=== PATIENT | male | born 1995 | race Two or more races ===

== ENCOUNTER 2019-11-04 11:38 | Inpatient (IN) | payer MEDICAID ==
[~2019-11-04] VITALS: Ht 157.5 cm; Wt 53.5 kg
[~2019-11-04 11:38] MED LIST: ACET325T53 PO; ALLA266C2 TP; BENA40TA8 PO; CALC667C6 PO; CLON0.1T14 PO; DARB25VI IV; DOCU-141 PO; HYDR-3974 GT; HYDR-4076 PO; IRON100V6 IV; PARI2VIA IV; SEVE800T8 PO; WARF2TAB57 PO
--- NOTE | 2019-11-04 12:30 | NUR ---
sent from dialysis for Lue dialysis access bleeding. PT AAOX4, VSS. RR EVEN & UNLABORED. DENIES CP, SOB, DIZZINESS, N/V, WEAKNESS @ THIS TIME. PT SEEN & EVAL'D BY THANH CONTRERAS. WILL CONT TO MONITOR.
[2019-11-04] MEDS ORDERED: CARV25TA2 PO (12:34)
[2019-11-04] MEDS ORDERED: SEVE800T7 PO (12:34)
[2019-11-04] MEDS ORDERED: OMEP20CA15 PO (12:34)
[2019-11-04] MEDS ORDERED: AMLO10TA7 PO (12:34)
[2019-11-04 12:44] LABS: BASOPHILS % (AUTO) 0.9 % (0.0-2.0); EOSINOPHILS % (AUTO) 12.3 % (0.0-6.0); HEMATOCRIT 30 % (39-51); HEMOGLOBIN 9.5 g/dL (13.5-17.5); LYMPHOCYTES # (AUTO) 0.8 /CMM (0.8-4.8); LYMPHOCYTES % (AUTO) 17.4 % (20.0-44.0); MEAN CORPUSCULAR HGB CONC 32 g/dl (31.0-36.0); MEAN CORPUSCULAR VOLUME 89 fL (80-96); MONOCYTES # (AUTO) 0.4 /CMM (0.1-1.30); MONOCYTES % (AUTO) 9.4 % (2.0-12.0); NEUTROPHILS # (AUTO) 2.7 /CMM (1.8-8.9); PLATELET COUNT (AUTO) 155 /CMM (150-450); RED BLOOD CELL COUNT(AUTO) 3.36 MIL/uL (4.5-6.0); WHITE BLOOD COUNT (AUTO) 4.4 K/uL (4.3-11.0)
[2019-11-04 12:59] LABS: POTASSIUM 5.1 mmol/L (3.5-5.1)
[2019-11-04 13:00] LABS: BILIRUBIN,DIRECT 0.1 mg/dL (0.0-0.2); BILIRUBIN,TOTAL 0.4 mg/dL (0.2-1.0); CALCIUM, SERUM 9.8 mg/dL (8.5-10.1)
[2019-11-04 13:02] LABS: CREATININE 15.7 mg/dL (0.6-1.3)
--- NOTE | 2019-11-04 13:18 | NUR ---
paged dr seo, call in progress
--- NOTE | 2019-11-04 13:21 | NUR ---
paged [facility] for panel call
--- NOTE | 2019-11-04 13:40 | NUR ---
REPORT GIVEN TO DESTINY MILLER FOR KIAN
--- NOTE | 2019-11-04 13:55 | NUR ---
RN ADMITTING NOTES ADMITTED A 24 Y/O MALE TO UNIT VIA WHEELCHAIR ACCOMPANIED BY HOSPITAL STAFF AND FAMILY. A/O X4. ABLE TO MAKE NEEDS KNOWN. NO COMPLAIN OF PAIN AT THIS TIME. NO SIGNS OF DISTRESS NOTED AT THIS TIME. ON ROOM AIR, BREATHING EVEN AND UNLABORED. V/S TAKEN, STABLE AND RECORDED. REFUSED PHYSICAL ASSESSMENT AT THIS TIME. LUNGS CLEAR ON AUSCULTATION. IV ACCESS ON RIGHT AC #20, PATENT AND INTACT. SAFETY MEASURES IN PLACE, BED IN LOW LOCKED POSITION WITH SIDE RAILS UP X2. CALL LIGHT WITHIN EASY REACH. WILL CONTINUE TO MONITOR.
[2019-11-04] MEDS ORDERED: MAG HYDROX/AL HYDROX/SIMETH 30 ML UDC PO PRN (15:30)
[2019-11-04] MEDS ORDERED: ZOLPIDEM TARTRATE 5 MG TABLET PO PRN (15:30)
[2019-11-04] MEDS ORDERED: ONDANSETRON HCL/PF 4 MG/2 ML VIAL IVP PRN (15:30)
[2019-11-04] MEDS ORDERED: Z GUARD REMEDY 2 OZ OINT TP PRN (15:30)
[2019-11-04] MEDS ORDERED: ACETAMINOPHEN 325 MG TABLET PO PRN (15:30)
[2019-11-04 16:00] VITALS: BP 140/82
[2019-11-04] MEDS: SEVELAMER CARBONATE 800 MG TABLET PO SCH (17:21)
--- NOTE | 2019-11-04 18:34 | NUR ---
RN CLOSING NOTES PATIENT IN BED RESTING COMFORTABLY IN MODERATE HIGH BACK REST. A/O X4. FAMILY AT BEDSIDE. ON RA, TOLERATING WELL. NO SIGNS OF DISTRESS NOTED THROUGHOUT THE SHIFT. SEEN AND EXAMINED BY KEO MARTINEZ NP. NO NEW ORDERS AT THIS TIME. SCHEDULED FOR HD TODAY AROUND 19:00, CONSENT SIGNED. SAFETY MEASURES IN PLACE, BED IN LOW LOCKED POSITION WITH SIDE RAILS UP X2. CALL LIGHT WITHIN REACH. WILL ENDORSE TO INTERACTIVE MEDIA MARKETING STRATEGIST NURSE FOR KIAN.
--- NOTE | 2019-11-04 19:50 | NUR ---
MS RN NOTES PATIENT IN BED AWAKE. RECEIVING HEMODIALYSIS ON LUE SHUNT. ALERT AND ORIENTED X 4. FAMILY AT BESIDE. IV ON RAC 20G. CLEAN DRY AND INTACT. BREATHING EVEN AND UNLABORED ON ROOM AIR. SAFETY PRECAUTION IN PLACE. BED IN LOWEST POSITION, LOCKED, AND CALL LIGHT KEPT WITHIN REACH. WILL CONTINUE TO MONITOR.
[2019-11-04 22:00] VITALS: BP 166/98
--- NOTE | 2019-11-04 22:30 | NUR ---
MS RN NOTES COMPLETED HEMODIALYSIS, 1500CC OUT. WILL CONTINUE TO MONITOR.
[2019-11-04] MEDS: CARVEDILOL 12.5 MG TABLET PO SCH (22:42)
--- NOTE | 2019-11-05 06:41 | NUR ---
MS RN NOTES PATIENT IN BED ASLEEP. RECEIVED HEMODIALYSIS ON LUE SHUNT. ALERT AND ORIENTED X 4. IV ON RAC 20G. CLEAN DRY AND INTACT. BREATHING EVEN AND UNLABORED ON ROOM AIR. ALL DUE MEDICATION GIVEN. SAFETY PRECAUTION IN PLACE. BED IN LOWEST POSITION, LOCKED, AND CALL LIGHT KEPT WITHIN REACH. WILL ENDORSE TO ONCOMING NURSE.
[2019-11-05 07:07] LABS: BASOPHILS % (AUTO) 0.7 % (0.0-2.0); EOSINOPHILS % (AUTO) 11.8 % (0.0-6.0); HEMATOCRIT 27 % (39-51); HEMOGLOBIN 8.6 g/dL (13.5-17.5); LYMPHOCYTES % (AUTO) 24.5 % (20.0-44.0); MEAN CORPUSCULAR HGB CONC 33 g/dl (31.0-36.0); MEAN CORPUSCULAR VOLUME 88 fL (80-96); MONOCYTES # (AUTO) 0.4 /CMM (0.1-1.30); NEUTROPHILS # (AUTO) 2.2 /CMM (1.8-8.9); PLATELET COUNT (AUTO) 135 /CMM (150-450); RED BLOOD CELL COUNT(AUTO) 3.02 MIL/uL (4.5-6.0); WHITE BLOOD COUNT (AUTO) 4.1 K/uL (4.3-11.0)
[2019-11-05] MEDS ORDERED: PANTOPRAZOLE 40 MG TABLET.DR PO SCH (07:30)
[2019-11-05 07:33] LABS: CALCIUM, SERUM 9.3 mg/dL (8.5-10.1); MAGNESIUM 2.5 mg/dL (1.8-2.4); PHOSPHORUS 5.5 mg/dL (2.5-4.9); POTASSIUM 4.8 mmol/L (3.5-5.1)
[2019-11-05 07:35] LABS: CREATININE 11.2 mg/dL (0.6-1.3)
[2019-11-05 08:00] VITALS: BP 167/100
[2019-11-05] MEDS ORDERED: AMLODIPINE BESYLATE 10 MG TABLET PO SCH (09:00)
[2019-11-05] MEDS: SEVELAMER CARBONATE 800 MG TABLET PO SCH ×2 (09:38→13:56)
[2019-11-05] MEDS: CARVEDILOL 12.5 MG TABLET PO SCH (09:41)
--- NOTE | 2019-11-05 10:44 | NUR ---
received alert and oriented .ambulating , with no signs of bleeding to the left upper arm av shunt
--- NOTE | 2019-11-05 11:19 | NUR ---
Dr Reyna in and infor,med bout the elevated phosphorous level
--- NOTE | 2019-11-05 14:02 | NUR ---
waiting for the physician to come to check on him,vascular physician order not ordered, charge nurse is calling the cosmetics and toiletries salesperson for the orders,
--- NOTE | 2019-11-05 15:43 | NUR ---
MICHELLE MARTINEZ WITH ORDERS FOR DISCHARGE, REPORT GIVEN TO ANOTHER RN FOR CONTINUED CARE, DR BUSH SEEN PATIENT AND FROM RENAL STANDPOINT PATIENT IS DISCHARGE. LEFT UPPER ARM AV SHUNT ISDRESSING INTACT AND NO SIGNS OF BLEEDING
[2019-11-05 16:00] VITALS: BP 135/84
--- NOTE | 2019-11-05 17:30 | NUR ---
discharged patient in stable condition picked up by mother accompanied by DESTINY Macdonald to the lobby. discharged instructions to f/u with dialysis center and surgeon as scheduled, verbalized understanding. dc paperwork given. all belongings returned. iv access removed. name band removed. photo taken.
== END 2019-11-05 17:30 | disposition home or self-care (01) | DRG 206 ==
LOC: ER 11:39 → MED 12:49
PROVIDERS: ADMIT Nurse Practitioner Acute Care; ATTEND Nurse Practitioner Acute Care
PROC: 5A1D70Z Performance of Urinary Filtration, Intermittent, Less than 6 Hours Per Day (ICD-10-PCS; principal; 2019-11-04)
DX: T82.838A Hemorrhage due to vascular prosthetic devices, implants and grafts, initial encounter (principal); I12.0 Hypertensive chronic kidney disease with stage 5 chronic kidney disease or end stage renal disease; E44.1 Mild protein-calorie malnutrition; N18.6 End stage renal disease; D63.8 Anemia in other chronic diseases classified elsewhere; Z99.2 Dependence on renal dialysis; Z86.711 Personal history of pulmonary embolism; E88.09 Other disorders of plasma-protein metabolism, not elsewhere classified; Z68.21 Body mass index [BMI] 21.0-21.9, adult; Y83.8 Other surgical procedures as the cause of abnormal reaction of the patient, or of later complication, without mention of misadventure at the time of the procedure; Y92.009 Unspecified place in unspecified non-institutional (private) residence as the place of occurrence of the external cause
CPT/HCPCS: 36415; 71045-TC; 80048-TC; 80061-TC; 80076-TC; 83735-TC; 84100-TC; 85025-TC; 85730-TC; 87081-TC; 90935-TC; 93971-TC; G0378

== ENCOUNTER 2022-09-10 10:57 | Inpatient (IN) | payer MEDICAID ==
[~2022-09-10] VITALS: Ht 154.9 cm; Wt 61.7 kg
[~2022-09-10 10:57] MED LIST changes: -ACET325T53 PO; -ALLA266C2 TP; +AMLO-213 PO; -CALC667C6 PO; +CARV25TA2 PO; -CLON0.1T14 PO; -DARB25VI IV; -DOCU-141 PO; -HYDR-4076 PO; -IRON100V6 IV; +OMEP20CA15 PO; -PARI2VIA IV; +SEVE800T7 PO; -SEVE800T8 PO; -WARF2TAB57 PO
--- NOTE | 2022-09-10 11:30 | NUR ---
dr muniz at bedside for eval.
[2022-09-10] MEDS ORDERED: METO25TA20 PO (11:41)
[2022-09-10] MEDS ORDERED: NIFE-34 PO (11:41)
[2022-09-10] MEDS ORDERED: CLON0.1T PO (11:41)
--- NOTE | 2022-09-10 12:40 | NUR ---
covid swab test done. sent to lab
--- NOTE | 2022-09-10 12:42 | NUR ---
GOT BED 325-1
--- NOTE | 2022-09-10 13:05 | NUR ---
IV line established at right forearm
--- NOTE | 2022-09-10 13:07 | NUR ---
blood sample collected send to lab.
--- NOTE | 2022-09-10 13:34 | NUR ---
[facility] paged. awaiting hospitalist call back.
[2022-09-10 13:38] LABS: BASOPHILS % (AUTO) 0.5 % (0.0-2.0); EOSINOPHILS % (AUTO) 8.1 % (0.0-6.0); HEMATOCRIT 23 % (39-51); HEMOGLOBIN 7.6 g/dL (13.5-17.5); LYMPHOCYTES # (AUTO) 0.9 K/uL (0.8-4.8); LYMPHOCYTES % (AUTO) 28.2 % (20.0-44.0); MEAN CORPUSCULAR HGB CONC 33 g/dl (31.0-36.0); MEAN CORPUSCULAR VOLUME 87 fL (80-96); MONOCYTES # (AUTO) 0.3 K/uL (0.1-1.30); MONOCYTES % (AUTO) 8.6 % (2.0-12.0); NEUTROPHILS # (AUTO) 1.8 K/uL (1.8-8.9); NEUTROPHILS % (AUTO) 54.6 % (43.0-81.0); PLATELET COUNT (AUTO) 95 K/uL (150-450); RED BLOOD CELL COUNT(AUTO) 2.67 MIL/uL (4.5-6.0); WHITE BLOOD COUNT (AUTO) 3.3 K/uL (4.3-11.0)
[2022-09-10 14:19] LABS: CALCIUM, SERUM 8.1 mg/dL (8.5-10.1); POTASSIUM 5.6 mmol/L (3.5-5.1)
[2022-09-10 14:21] LABS: CREATININE 17.3 mg/dL (0.6-1.3)
[2022-09-10 14:24] LABS: ALBUMIN 3.6 g/dL (3.4-5.0); BILIRUBIN,TOTAL 0.3 mg/dL (0.2-1.0); TOTAL PROTEIN, SERUM 7.7 g/dL (6.4-8.2)
--- NOTE | 2022-09-10 14:37 | NUR ---
report given to yan salcido. pt awaiting transfer to floor.
--- NOTE | 2022-09-10 15:15 | NUR ---
ADMISSION RN NOTES ADMITTED A 27 Y/O MALE TO THE UNIT AT 1505 VIA GURNEY ACCOMPANIED BY Eduarda NURSE, MARY, DESTINY WITH DX OF HD CATH MALFUNCTION. PATIENT IS ALERT AND ORIENTED X4, WALLISIAN SPEAKING. SURGERY CENTER ADMINISTRATOR AVAILABLE NEEDED. PT ORIENTED TO STAFF AND UNIT. V/S TAKEN AND RECORDED. PT ON ROOM AIR, TOLERATING WELL WITH SPO2 AT 97%. NO SOB NOTED AT THIS TIME. NOT IN ANY SIGN OF RESPIRATORY DISTRESS. LUNG SOUNDS CLEAR BILATERALLY UPON AUSCULTATION. ABDOMEN SOFT AND NON-TENDER. PT DENIES PAIN OR DISCOMFORT AT THIS TIME. SKIN IS INTACT, DRY, AND WARM. PT REFUSED BODY ASSESSMENTS AND PHOTOGRAPHS OF SKIN ISSUES TO BE TAKEN. IV ACCESS IN RFA G #20 INTACT AND PATENT. PT'S RIGHT FEMORAL DIALYSIS SITE MALFUNCTIONING. NO BLEEDING NOTED. SAFETY MEASURES INITIATED: BED IN LOWEST AND LOCKED POSITION, SIDE RAILS UP X2, AND CALL LIGHT WITHIN REACH. WILL CONTINUE TO MONITOR PT.
[2022-09-10] MEDS ORDERED: ACETAMINOPHEN 325 MG TABLET PO PRN (16:30)
[2022-09-10] MEDS ORDERED: HYDROCODONE/APAP 5/325MG TABLET PO PRN (16:30)
[2022-09-10] MEDS ORDERED: Z GUARD REMEDY 4 OZ OINT TP PRN (16:30)
[2022-09-10] MEDS ORDERED: ONDANSETRON HCL/PF 4 MG/2 ML VIAL IVP PRN (16:30)
[2022-09-10] MEDS ORDERED: SODIUM POLYSTYRENE SULFONATE 15 G/60 ML BOTTLE PO ONE (17:00)
[2022-09-10] MEDS: SEVELAMER CARBONATE 800 MG TABLET PO SCH (17:35)
--- NOTE | 2022-09-10 19:05 | NUR ---
RN NOTE CONSENT FOR REPLACEMENT OF HEMODIALYSIS CATHETER BY DR. DALE/DR. RUBIN OBTAINED AND SIGNED BY PT. PT WILL BE NPO AFTER MIDNIGHT. PROCEDURE WILL BE TOMORROW 09/11/22 AT 1000.
--- NOTE | 2022-09-10 19:15 | NUR ---
RN OPENING NOTE PATIENT IN BED, AWAKE. PATIENT IS ABLE TO MAKE NEEDS KNOWN. A/O X 4 AT THIS TIME. UGANDAN SPEAKING, ABLE TO UNDERSTAND INDONESIAN. PATIENT IS ON RA, TOLERATING WELL, BREATHING EVEN AND UNLABORED. PATIENT'S TELE MONITOR READS SR 91 BPM. PATIENT TO BE NPO AFTER MIDNIGHT FOR HD CATH REPLACEMENT IN AM. PATIENT NOTED TO HAVE A RFA 20 G SALINE LOCKED AT THIS TIME, FLUSHING WELL. PATIENT HAS A R FEMORAL HD CATH, DRESSING C/D/I AT THIS TIME, AND PATIENT HAS A MICHAEL AV FISTULA, PER PATIENT, IT IS NO LONGER BEING USED. PATIENT DOES NOT REPORT OF ANY PAIN AT THIS TIME. SAFETY MEASURES IN PLACE: BED LOCKED AND IN LOWEST POSITION, CALL LIGHT WITHIN REACH, SIDE RAILS UP. WILL MONITOR PATIENT CLOSELY.
--- NOTE | 2022-09-10 19:23 | NUR ---
ADMISSION RN NOTES PT AWAKE AND RESTING IN BED. PATIENT IS ALERT AND ORIENTED X4, ITALIAN SPEAKING. PT ON ROOM AIR, TOLERATING WELL. NO SOB NOTED AT THIS TIME. NOT IN ANY SIGN OF RESPIRATORY DISTRESS. IV ACCESS IN RFA G #20 INTACT AND PATENT. PT'S RIGHT FEMORAL DIALYSIS SITE MALFUNCTIONING. NO BLEEDING NOTED. ALL NEEDS ATTENDED. KEPT CLEAN AND COMFORTABLE. SAFETY MEASURES INITIATED: BED IN LOWEST AND LOCKED POSITION, SIDE RAILS UP X2, AND CALL LIGHT WITHIN REACH. ENDORSED TO SOLDER TECHNICIAN NURSE FOR KIAN. Addendum: 09/10/22 at 1924 by KARELY NEVILLE RN ERROR: DELETE NOTE Addendum: 09/10/22 at 1955 by KARELY NEVILLE RN ADDENDUM TELE FINE CHEMICALS OPERATOR WAS PLACED IN THE PT WITH CURRENT READING OF SINUS RHYTHM, HR 88. NO C/O OF CARDIAC DISTRESS VOICED OUT AT THIS TIME.
--- NOTE | 2022-09-10 19:25 | NUR ---
MS RN CLOSING NOTES PT AWAKE AND RESTING IN BED. PATIENT IS ALERT AND ORIENTED X4, GREEK SPEAKING. PT ON ROOM AIR, TOLERATING WELL. NO SOB NOTED AT THIS TIME. NOT IN ANY SIGN OF RESPIRATORY DISTRESS. IV ACCESS IN RFA G #20 INTACT AND PATENT. PT'S RIGHT FEMORAL DIALYSIS SITE MALFUNCTIONING. NO BLEEDING NOTED. ALL NEEDS ATTENDED. KEPT CLEAN AND COMFORTABLE. SAFETY MEASURES MAINTAINED: BED IN LOWEST AND LOCKED POSITION, SIDE RAILS UP X2, AND CALL LIGHT WITHIN REACH. ENDORSED TO WARE SERVER NURSE FOR KIAN. Addendum: 09/10/22 at 1956 by KARELY NEVILLE RN ADDENDUM PT ON TELE COOK JELLY WITH CURRENT READING OF SINUS RHYTHM, HR 92. NO C/O OF CARDIAC DISTRESS VOICED OUT AT THIS TIME.
[2022-09-10 20:59] VITALS: BP 139/78
[2022-09-10 21:14] LABS: BAND % (MANUAL) 8 % (0.0-5.0); BASOPHILS % (MANUAL) 0 % (0.0-2.0); EOSINOPHILS % (MANUAL) 6 % (0-4); LYMPHOCYTES % (MANUAL) 12 % (16-48); MONOCYTES % (MANUAL) 9 % (0-11.0); NEUTROPHILS % (MANUAL) 65 (42-76)
[2022-09-11 00:26] VITALS: BP 160/102
[2022-09-11] MEDS: hydrALAZINE HCL IV 20 MG VIAL IV PRN ×2 (01:28→05:35)
--- NOTE | 2022-09-11 01:33 | NUR ---
RN NOTE RECHECKED BP: 173/111 FROM 160/102. HYDRALAZINE 10 MG IV GIVEN FOR HIGH BP.
[2022-09-11 04:10] VITALS: BP 191/113
[2022-09-11 06:34] LABS: BASOPHILS % (AUTO) 0.5 % (0.0-2.0); EOSINOPHILS % (AUTO) 7.3 % (0.0-6.0); HEMATOCRIT 21 % (39-51); HEMOGLOBIN 7.1 g/dL (13.5-17.5); LYMPHOCYTES # (AUTO) 0.9 K/uL (0.8-4.8); LYMPHOCYTES % (AUTO) 24.2 % (20.0-44.0); MEAN CORPUSCULAR HGB CONC 33 g/dl (31.0-36.0); MEAN CORPUSCULAR VOLUME 86 fL (80-96); MONOCYTES # (AUTO) 0.2 K/uL (0.1-1.30); MONOCYTES % (AUTO) 5.8 % (2.0-12.0); NEUTROPHILS # (AUTO) 2.4 K/uL (1.8-8.9); NEUTROPHILS % (AUTO) 62.2 % (43.0-81.0); PLATELET COUNT (AUTO) 93 K/uL (150-450); RED BLOOD CELL COUNT(AUTO) 2.49 MIL/uL (4.5-6.0); WHITE BLOOD COUNT (AUTO) 3.8 K/uL (4.3-11.0)
[2022-09-11] MEDS ORDERED: hydrALAZINE HCL IV 20 MG VIAL IV ONE (07:00)
[2022-09-11 07:25] LABS: CALCIUM, SERUM 7.9 mg/dL (8.5-10.1); MAGNESIUM 2.6 mg/dL (1.8-2.4); PHOSPHORUS 7.5 mg/dL (2.5-4.9); POTASSIUM 4.9 mmol/L (3.5-5.1)
--- NOTE | 2022-09-11 07:28 | NUR ---
GRAPHIC PRODUCTION ARTIST OPENING NOTE RECEIVED PT AWAKE AND RESTING IN BED. PATIENT IS ALERT AND ORIENTED X4, ANGUILLAN SPEAKING. PT ON ROOM AIR, TOLERATING WELL. NO SOB NOTED AT THIS TIME. NOT IN ANY SIGN OF RESPIRATORY DISTRESS. PT ON TELE CLIENT SUPPORT COORDINATOR WITH CURRENT READING OF SINUS RHYTHM, HR 90. NO C/O OF CARDIAC DISTRESS VOICED OUT AT THIS TIME. IV ACCESS IN RFA G #20 INTACT AND PATENT. PT'S RIGHT FEMORAL DIALYSIS SITE, C/D/I AT THIS TIME. NO BLEEDING NOTED. SAFETY MEASURES IN PLACE: BED IN LOWEST AND LOCKED POSITION, SIDE RAILS UP X2, AND CALL LIGHT WITHIN REACH. WILL CONTINUE TO MONITOR PT.
--- NOTE | 2022-09-11 07:31 | NUR ---
RN CLOSING NOTE PATIENT IN BED, AWAKE. PATIENT IS ABLE TO MAKE NEEDS KNOWN. A/O X 4 AT THIS TIME. STATELESS SPEAKING, ABLE TO UNDERSTAND KHMER. PATIENT IS ON RA, TOLERATING WELL, BREATHING EVEN AND UNLABORED. PATIENT'S TELE MONITOR READS SR 86 BPM. NPO STATUS MAINTAINED PATIENT NOTED TO HAVE A RFA 20 G SALINE LOCKED AT THIS TIME, FLUSHING WELL. PATIENT HAS A R FEMORAL HD CATH, DRESSING C/D/I AT THIS TIME, AND PATIENT HAS A MICHAEL AV FISTULA, PER PATIENT, IT IS NO LONGER BEING USED. HYDRALAZINE GIVEN FOR 180/120 X 1 ORDER FROM MD. PATIENT DOES NOT REPORT OF ANY PAIN AT THIS TIME. SAFETY MEASURES IN PLACE: BED LOCKED AND IN LOWEST POSITION, CALL LIGHT WITHIN REACH, SIDE RAILS UP. ALL NEEDS MET AND ATTENDED ALL ORDERS CARRIED OUT. WILL ENDORSE TO DAY SHIFT NURSE FOR KIAN.
[2022-09-11 07:32] LABS: CREATININE 18.9 mg/dL (0.6-1.3)
[2022-09-11] MEDS: SEVELAMER CARBONATE 800 MG TABLET PO SCH ×3 (08:00→18:02)
--- NOTE | 2022-09-11 08:26 | NUR ---
RN NOTE DESTINY PERDOMO NIGHT NURSE ENDORSED THAT SHE ADMINISTERED THE HYDRALAZINE DUE TO PT'S BP BEING ELEVATED AT 180/120. REASSESSED PT'S BP MANUALLY AFTER AN HOUR OF ADMINISTRATION AND IT'S 178/112. CALLED DR. NADEGE SCHAFFER AND LEFT MESSAGE, MADE HIM AWARE OF PT'S BP AND THAT PT IS CURRENTLY NPO AND ASKED IF OK TO GIVE PO BLOOD PRESSURE MEDICATIONS ONLY. AWAITING FOR A CALL BACK.
--- NOTE | 2022-09-11 08:58 | NUR ---
RN NOTE RECEIVED A CALL BACK FROM DR. NADEGE SCHAFFER. MADE HIM AWARE OF PT'S CURRENT ELEVATED BP, ALSO LET HIM KNOW THAT PT HAS A SCHEDULED PO BP MEDICATIONS AT 0900 BUT PT IS NPO. PER DR. SCHAFFER OK TO GIVE ALL THE PO BP MEDICATIONS ONLY WITH SIP OF WATER.
[2022-09-11] MEDS: LISINOPRIL (20MG) 20 MG TABLET PO SCH ×2 (09:00→16:35)
[2022-09-11] MEDS: METOPROLOL TARTRATE 25 MG TABLET PO SCH ×2 (09:00→16:34)
--- NOTE | 2022-09-11 09:00 | NUR ---
RN NOTE ALL PO BLOOD PRESSURE MEDICATIONS SCHEDULED AT 0900 ADMINISTERED. WILL MONITOR AND REASSESSED PT.
[2022-09-11] MEDS: NIFEdipine XL (30MG) 30 MG TAB PO SCH (09:01)
[2022-09-11] MEDS ORDERED: FAMOTIDINE/PF INJ 20 MG/2 ML VIAL IV ONE (09:24)
[2022-09-11] MEDS ORDERED: FENTANYL PF 100MCG/2ML AMPUL ONE (09:24)
[2022-09-11] MEDS ORDERED: HEPARIN SODIUM, PORCINE 1,000 UNIT/ML VIAL ONE (09:29)
[2022-09-11] MEDS ORDERED: LIDOCAINE HCL/MPF 1% 30 ML VIAL IJ ONE (09:29)
[2022-09-11] MEDS ORDERED: IOHEXOL 50 ML IV ONE (09:29)
--- NOTE | 2022-09-11 09:30 | NUR ---
RN NOTE REASSESSED PT'S BP MANUALLY AFTER 30 MINUTES OF ADMINISTERING PO BP MEDICATIONS. CURRENTLY AT 178/118, WILL CONTINUE TO MONITOR AND REASSESS PT.
--- NOTE | 2022-09-11 09:40 | NUR ---
RN NOTE PT LEFT THE UNIT, PICKED UP BY OR STAFF FOR SURGERY OF REPLACEMENT OF HD CATH. MADE OR STAFF KNOW THAT REASSESSED PT'S BP AFTER ADMINISTERING BP PO MEDICATIONS IS 178/118 MANUALLY.
[2022-09-11] MEDS ORDERED: BUPIVACAINE 0.5 % PF 150 MG/30 ML VIAL ONE (10:51)
[2022-09-11] MEDS ORDERED: LIDOCAINE 1% INJ 50 ML MDV IJ ONE (10:57)
[2022-09-11] MEDS ORDERED: LABETALOL HCL IV 100MG VIAL ONE (11:14)
--- NOTE | 2022-09-11 12:10 | NUR ---
RN NOTE PT BACK TO THE UNIT VIA BED WITH OR NURSEASAF. PT ON S/P RIGHT INTERNAL JUGULAR TUNNELED DIALYSIS PERMACATH. DRESSING C/D/I NOTED. PER SIMÓN, XRAY DONE AND PERMACATH IS OK TO USE. PT IS ALSO ON S/P RIGHT GROIN FEMORAL FISTULA REMOVED. NO BLEEDING NOTED, DRESSING C/D/I. VITAL SIGNS: BP 153/100, P 86, TEMP 98.0, R 18, SPO2 97% WITH O2 AT 3L/MIN VIA NASAL CANNULA.
--- NOTE | 2022-09-11 12:15 | NUR ---
RN NOTE HD STARTED BY DIALYSIS NURSE, DESTINY BOGGS VIA THE RIGHT INTERNAL JUGULAR TUNNELED DIALYSIS PERMACATH. VITAL SIGNS: BP 165/105, P 88, TEMP 98.0, R 18, SPO2 97% WITH O2 AT 3L/MIN VIA NASAL CANNULA.
[2022-09-11] MEDS ORDERED: ANESTHESIA TRAY IN PYXIS 1 EA TRAY MC ONE ×2 (14:09→14:11)
--- NOTE | 2022-09-11 15:10 | NUR ---
RN NOTE HD ENDED AND COMPLETED BY DIALYSIS NURSE AMBROSE WITH 2 LITERS OUTPUT. RIGHT INTERNAL JUGULAR TUNNELED PERMACATH DRESSING C/D/I. VITAL SIGNS: BP 161/89, P 85, TEMP 98.3, R 18, SPO2 97% WITH O2 AT 3L/MIN VIA NASAL CANNULA.
[2022-09-11 16:00] VITALS: BP 154/98
[2022-09-11 16:33] LABS: BAND % (MANUAL) 5 % (0.0-5.0); BASOPHILS % (MANUAL) 0 % (0.0-2.0); EOSINOPHILS % (MANUAL) 2 % (0-4); LYMPHOCYTES % (MANUAL) 18 % (16-48); MONOCYTES % (MANUAL) 4 % (0-11.0); NEUTROPHILS % (MANUAL) 71 (42-76)
[2022-09-11] MEDS: ANCEF 1 GM/50 ML D5W IV SCH ×2 (18:02)
--- NOTE | 2022-09-11 18:53 | NUR ---
RAILROAD SWITCHMAN CLOSING NOTE PT AWAKE AND RESTING IN BED. PATIENT IS ALERT AND ORIENTED X4, MALTESE SPEAKING. PT ON ROOM AIR, TOLERATING WELL. NO SOB NOTED AT THIS TIME. NOT IN ANY SIGN OF RESPIRATORY DISTRESS. PT ON TELE GARNETT FEEDER WITH CURRENT READING OF SINUS RHYTHM, HR 86. NO C/O OF CARDIAC DISTRESS VOICED OUT AT THIS TIME. IV ACCESS IN RFA G #20 INTACT AND PATENT. PT ON S/P RIGHT INTERNAL JUGULAR TUNNELED DIALYSIS PERMACATH. DRESSING C/D/I NOTED. ON S/P REMOVAL OF RIGHT GROIN FEMORAL FISTULA. NO BLEEDING NOTED, DRESSING C/D/I. ALL NEEDS ATTENDED. KEPT CLEAN AND COMFORTABLE. SAFETY MEASURES IN PLACE: BED IN LOWEST AND LOCKED POSITION, SIDE RAILS UP X2, AND CALL LIGHT WITHIN REACH. WILL ENDORSE TO ATOMIZER ASSEMBLER NURSE FOR KIAN.
--- NOTE | 2022-09-11 19:13 | NUR ---
RN OPENING NOTE PATIENT IN BED, SLEEPING, EASILY AWAKENED. PATIENT IS ABLE TO MAKE NEEDS KNOWN. A/O X 4 AT THIS TIME. GREEK SPEAKING, ABLE TO UNDERSTAND CZECH. PATIENT IS ON RA, TOLERATING WELL, BREATHING EVEN AND UNLABORED. PATIENT'S TELE MONITOR READS SR 88 BPM. PATIENT NOTED TO HAVE A RFA 20 G SALINE LOCKED AT THIS TIME, FLUSHING WELL. PATIENT HAS A R IJ PERMACATH, DRESSING C/D/I AT THIS TIME, AND PATIENT HAS A MICHAEL AV FISTULA PRESENT WELL. PATIENT DOES NOT REPORT OF ANY PAIN AT THIS TIME. SAFETY MEASURES IN PLACE: BED LOCKED AND IN LOWEST POSITION, CALL LIGHT WITHIN REACH, SIDE RAILS UP. WILL MONITOR PATIENT CLOSELY.
[2022-09-11 20:00] VITALS: BP 147/81
[2022-09-12] VITALS: BP 150/99
[2022-09-12] MEDS: ANCEF 1 GM/50 ML D5W IV SCH ×4 (01:03→10:26)
[2022-09-12 04:00] VITALS: BP 155/103
[2022-09-12 06:37] LABS: BASOPHILS % (AUTO) 0.3 % (0.0-2.0); EOSINOPHILS % (AUTO) 5.8 % (0.0-6.0); HEMATOCRIT 21 % (39-51); HEMOGLOBIN 7.2 g/dL (13.5-17.5); LYMPHOCYTES # (AUTO) 0.7 K/uL (0.8-4.8); LYMPHOCYTES % (AUTO) 19.3 % (20.0-44.0); MEAN CORPUSCULAR HGB CONC 34 g/dl (31.0-36.0); MEAN CORPUSCULAR VOLUME 86 fL (80-96); MONOCYTES # (AUTO) 0.4 K/uL (0.1-1.30); MONOCYTES % (AUTO) 9.8 % (2.0-12.0); NEUTROPHILS # (AUTO) 2.4 K/uL (1.8-8.9); NEUTROPHILS % (AUTO) 64.8 % (43.0-81.0); PLATELET COUNT (AUTO) 105 K/uL (150-450); RED BLOOD CELL COUNT(AUTO) 2.47 MIL/uL (4.5-6.0); WHITE BLOOD COUNT (AUTO) 3.7 K/uL (4.3-11.0)
--- NOTE | 2022-09-12 07:29 | NUR ---
RN CLOSING NOTE PATIENT IN BED, AWAKE. PATIENT IS ABLE TO MAKE NEEDS KNOWN. A/O X 4 AT THIS TIME. SRI LANKAN SPEAKING, ABLE TO UNDERSTAND ICELANDIC. PATIENT IS ON RA, TOLERATING WELL, BREATHING EVEN AND UNLABORED. PATIENT'S TELE MONITOR READS SR 90 BPM. PATIENT HAS A RFA 20 G SALINE LOCKED AT THIS TIME, FLUSHING WELL. R IJ HD CATH, DRESSING C/D/I. PATIENT DOES NOT REPORT OF ANY PAIN AT THIS TIME. SAFETY MEASURES IN PLACE: BED LOCKED AND IN LOWEST POSITION, CALL LIGHT WITHIN REACH, SIDE RAILS UP. ALL NEEDS MET AND ATTENDED ALL ORDERS CARRIED OUT. WILL ENDORSE TO DAY SHIFT NURSE FOR KIAN.
[2022-09-12 07:36] LABS: CALCIUM, SERUM 8.4 mg/dL (8.5-10.1); MAGNESIUM 2.4 mg/dL (1.8-2.4); PHOSPHORUS 5.2 mg/dL (2.5-4.9)
--- NOTE | 2022-09-12 07:45 | NUR ---
RN OPENING NOTES RECEIVED PATIENT IN BED, AWAKE , VERBALLY RESPONSIVE A/O X 4 ,. PATIENT IS ABLE TO MAKE NEEDS KNOWN . PATIENT IS ON RA, TOLERATING WELL, BREATHING EVEN AND UNLABORED. PATIENT'S TELE MONITOR READS SR 78 BPM. NO C/O OF PAIN AND DISCOMFORT NOTED . PATIENT NOTED TO HAVE A RFA 20 G SALINE LOCKED AT THIS TIME, FLUSHING WELL. PATIENT HAS A R IJ PERMACATH, DRESSING C/D/I AT THIS TIME, AND PATIENT HAS A MICHAEL AV FISTULA PRESENT WELL . SAFETY MEASURES IN PLACE: BED LOCKED AND IN LOWEST POSITION, CALL LIGHT WITHIN REACH, SIDE RAILS UP. WILL MONITOR PATIENT CLOSE
[2022-09-12 07:46] LABS: CREATININE 13.9 mg/dL (0.6-1.3)
[2022-09-12 08:00] VITALS: BP 173/110
[2022-09-12] MEDS: SEVELAMER CARBONATE 800 MG TABLET PO SCH ×3 (09:25→17:20)
[2022-09-12] MEDS: LISINOPRIL (20MG) 20 MG TABLET PO SCH ×2 (09:26→17:15)
[2022-09-12] MEDS: METOPROLOL TARTRATE 25 MG TABLET PO SCH ×2 (09:26→17:15)
[2022-09-12] MEDS: NIFEdipine XL (30MG) 30 MG TAB PO SCH (09:27)
--- NOTE | 2022-09-12 10:44 | NUR ---
RN NOTES IV ATB OF ANCEF WAS HOLD DUE TO PATIENT ON DIALYSIS
--- NOTE | 2022-09-12 11:00 | NUR ---
RN NOTES DIALYSIS DONE AND IV ATB GIVEN ORDERED
[2022-09-12 12:00] VITALS: BP 194/123
--- NOTE | 2022-09-12 18:59 | NUR ---
RN CLOSING NOTES PATIENT IN BED, AWAKE , VERBALLY RESPONSIVE A/O X 4 ,. PATIENT IS ABLE TO MAKE NEEDS KNOWN . PATIENT IS ON RA, TOLERATING WELL, BREATHING EVEN AND UNLABORED. PATIENT'S TELE MONITOR READS SR 78 BPM. NO C/O OF PAIN AND DISCOMFORT NOTED . ALL DUE MEDS GIVEN ORDERED , HEMODIALYSIS DONE TODAY AND WITH 2 L OUT . PATIENT NOTED TO HAVE A RFA 20 G SALINE LOCKED AT THIS TIME, FLUSHING WELL. PATIENT HAS A R IJ PERMACATH, DRESSING C/D/I AT THIS TIME, AND PATIENT HAS A MICHAEL AV FISTULA PRESENT WELL . SAFETY MEASURES IN PLACE: BED LOCKED AND IN LOWEST POSITION, CALL LIGHT WITHIN REACH, SIDE RAILS UP. WILL MONITOR PATIENT CLOSE
--- NOTE | 2022-09-12 19:40 | NUR ---
SUPERVISOR MAINSPRING FABRICATION OPENING NOTES RECEIVED PATIENT AWAKE IN BED, A/O X 4, ABLE TO MAKE NEEDS KNOWN . PATIENT IS ON RA, TOLERATING WELL, BREATHING EVEN AND UNLABORED. PATIENT'S TELE MONITOR READS SR 91 BPM. NO C/O OF PAIN AND DISCOMFORT NOTED. PATIENT NOTED TO HAVE A RFA 20 G SALINE LOCKED AT THIS TIME, FLUSHING WELL. PATIENT HAS A R IJ PERMACATH, DRESSING C/D/I AT THIS TIME, NOTED PATIENT WITH MICHAEL AV FISTULA, SAFETY MEASURES IN PLACE: BED LOCKED AND IN LOWEST POSITION, CALL LIGHT WITHIN REACH, SIDE RAILS UP. FAMILY MEBER AT BEDSIDE, WILL CONTINUE TO MONITOR PATIENT.
[2022-09-12 20:00] VITALS: BP 167/102
--- NOTE | 2022-09-12 21:58 | NUR ---
RN NOTE NOTED PT WITH LOW GRADE FEVER AT 99.5. COOLING MEASURES PROVIDED, NO COMPLAINTS OF PAIN AND DISCOMFORT AT THIS TIME. WILL CONT TO MONITOR.
[2022-09-13] VITALS: BP 156/103
[2022-09-13 04:00] VITALS: BP 167/108
--- NOTE | 2022-09-13 04:40 | NUR ---
RN NOTE NOTED PT BP HIGH AT 167/108, HR OF 91. HYDRALAZINE IV GIVEN PRN ORDER FOR HYPERTENSION. NO COMPLAINTS OF PAIN AT THIS TIME, WILL CONT TO MONITOR.
[2022-09-13] MEDS: hydrALAZINE HCL IV 20 MG VIAL IV PRN ×2 (04:52→13:07)
--- NOTE | 2022-09-13 06:22 | NUR ---
ORACLE DATABASE ARCHITECT CLOSING NOTES PATIENT ASLEEP IN BED, A/OX 4, ON RA TOLERATING WELL, BREATHING EVEN AND UNLABORED. PATIENT'S TELE MONITOR READS SR 88 BPM. NO C/O OF PAIN AND DISCOMFORT NOTED. PATIENT NOTED TO HAVE A RFA 20 G SALINE LOCKED INTACT, PATENT AND FLUSHING WELL. PATIENT HAS A R IJ PERMACATH, DRESSING C/D/I AT THIS TIME, NOTED PATIENT WITH MICHAEL AV FISTULA, ALL DUE MEDS GIVEN, SAFETY MEASURES IN PLACE: BED LOCKED AND IN LOWEST POSITION, CALL LIGHT WITHIN REACH, SIDE RAILS UP. WILL ENDORSE TO AM SHIFT NURSE FOR CONTINUITY OF CARE..
[2022-09-13 06:52] LABS: BASOPHILS % (AUTO) 0.3 % (0.0-2.0); EOSINOPHILS % (AUTO) 13.1 % (0.0-6.0); HEMATOCRIT 21 % (39-51); HEMOGLOBIN 7.1 g/dL (13.5-17.5); LYMPHOCYTES # (AUTO) 0.7 K/uL (0.8-4.8); LYMPHOCYTES % (AUTO) 21.1 % (20.0-44.0); MEAN CORPUSCULAR HGB CONC 34 g/dl (31.0-36.0); MEAN CORPUSCULAR VOLUME 86 fL (80-96); MONOCYTES # (AUTO) 0.4 K/uL (0.1-1.30); NEUTROPHILS # (AUTO) 1.9 K/uL (1.8-8.9); NEUTROPHILS % (AUTO) 53.5 % (43.0-81.0); PLATELET COUNT (AUTO) 106 K/uL (150-450); RED BLOOD CELL COUNT(AUTO) 2.47 MIL/uL (4.5-6.0); WHITE BLOOD COUNT (AUTO) 3.5 K/uL (4.3-11.0)
[2022-09-13 07:23] LABS: CALCIUM, SERUM 9.1 mg/dL (8.5-10.1); MAGNESIUM 2.3 mg/dL (1.8-2.4); PHOSPHORUS 5.3 mg/dL (2.5-4.9); POTASSIUM 4.6 mmol/L (3.5-5.1)
[2022-09-13 07:32] LABS: CREATININE 11.4 mg/dL (0.6-1.3)
--- NOTE | 2022-09-13 07:32 | NUR ---
TRAIN OPERATIONS MANAGER OPENING NOTES RECEIVED PATIENT ASLEEP IN BED BUT AROUSABLE , A/O X 4, ABLE TO MAKE NEEDS KNOWN . PATIENT IS ON RA, NO SOB OR DISTRESS NOTED . PATIENT'S TELE MONITOR READS SR 90 BPM. NO C/O OF PAIN AND DISCOMFORT . IV ACCESS ON RFA 20 G SALINE LOCKED AT THIS TIME, FLUSHING WELL. PATIENT HAS A R IJ PERMACATH, DRESSING C/D/I AT THIS TIME, NOTED PATIENT WITH MICHAEL AV FISTULA, SAFETY MEASURES IN PLACE: BED LOCKED AND IN LOWEST POSITION, CALL LIGHT WITHIN REACH, SIDE RAILS UP. FAMILY MEBER AT BEDSIDE, WILL CONTINUE TO MONITOR PATIENT.
[2022-09-13] MEDS: LISINOPRIL (20MG) 20 MG TABLET PO SCH (08:22)
[2022-09-13] MEDS: METOPROLOL TARTRATE 25 MG TABLET PO SCH (08:22)
[2022-09-13] MEDS: SEVELAMER CARBONATE 800 MG TABLET PO SCH ×2 (08:22→12:11)
[2022-09-13] MEDS ORDERED: NIFEdipine XL (30MG) 30 MG TAB PO SCH (09:00)
[2022-09-13 09:39] LABS: EOSINOPHILS % (MANUAL) 12 % (0-4); LYMPHOCYTES % (MANUAL) 22 % (16-48); MONOCYTES % (MANUAL) 6 % (0-11.0); NEUTROPHILS % (MANUAL) 60 (42-76)
[2022-09-13] MEDS ORDERED: NIFE-35 PO (12:30)
[2022-09-13 13:07] VITALS: BP 193/127
--- NOTE | 2022-09-13 17:30 | NUR ---
WOOD CALKERPNEUMATIC TOOL REPAIRER NOTES PATIENT AWAKE IN BED, A/OX 4, ON RA TOLERATING WELL, BREATHING EVEN AND UNLABORED. PATIENT'S TELE MONITOR READS SR 80 BPM. NO C/O OF PAIN AND DISCOMFORT . ALL DUE MEDS GIVEN ORDERED , DIALYSIS DONE TODAY WITH 2.5 LITERS OUT, HYDRALAZINE GIVEN ORDERED PATIENT WITH BP OF ABOVE 170 , WITH ORDER FOR DISCHARGE AFTER DIALYSIS DONE , DISCHARGE PAPERS PREPARED AND INSTRUCTIONS PROVIDED REGARDING HEMODIALYSIS NEW MEDICATION, SAFETY AND HOW TO MONITOR DIALYSIS FOR ANY CHANGES AND INSTRUCTIONS UNDERSTOOD , ALL BELONGINGS WERE TAKEN AND FORM WAS SIGNED , BROTHER CAME TO TERRAZZO SUPERVISOR THE PATIENT AND AND WILL PROVIDE TRANSPORTATION VIA PRIVATE CAR, ASSISTED TO THE LOBBY ,PATIENT LEFT WITH NO SOB OR DISTRESS , NO PAIN AND DISCOMFORT AND IN A STABLE CONDITION , IV ACCESS REMOVED AND ID BAND REMOVED
== END 2022-09-13 16:58 | disposition home or self-care (01) | DRG 466 ==
LOC: ER 10:57 → TELE 15:27
PROVIDERS: ADMIT Nurse Practitioner Family; ATTEND Nurse Practitioner Family
PROC: 0JPW3XZ Removal of Tunneled Vascular Access Device from Lower Extremity Subcutaneous Tissue and Fascia, Percutaneous Approach (ICD-10-PCS; principal; 2022-09-11)
PROC: 0JHD3XZ Insertion of Tunneled Vascular Access Device into Right Upper Arm Subcutaneous Tissue and Fascia, Percutaneous Approach (ICD-10-PCS; 2022-09-11)
PROC: 05HM33Z Insertion of Infusion Device into Right Internal Jugular Vein, Percutaneous Approach (ICD-10-PCS; 2022-09-11)
PROC: 5A1D70Z Performance of Urinary Filtration, Intermittent, Less than 6 Hours Per Day (ICD-10-PCS; 2022-09-11)
PROC: B543ZZA Ultrasonography of Right Jugular Veins, Guidance (ICD-10-PCS; 2022-09-11)
PROC: B518YZZ Fluoroscopy of Superior Vena Cava using Other Contrast (ICD-10-PCS; 2022-09-11)
DX: T82.41XA Breakdown (mechanical) of vascular dialysis catheter, initial encounter (principal); I12.0 Hypertensive chronic kidney disease with stage 5 chronic kidney disease or end stage renal disease; D61.818 Other pancytopenia; D69.6 Thrombocytopenia, unspecified; N18.6 End stage renal disease; Y71.2 Prosthetic and other implants, materials and accessory cardiovascular devices associated with adverse incidents; Z99.2 Dependence on renal dialysis; Z20.822 Contact with and (suspected) exposure to COVID-19; Z79.899 Other long term (current) drug therapy; Y92.009 Unspecified place in unspecified non-institutional (private) residence as the place of occurrence of the external cause; Z86.711 Personal history of pulmonary embolism; M89.8X9 Other specified disorders of bone, unspecified site; E87.5 Hyperkalemia; D64.9 Anemia, unspecified
CPT/HCPCS: 36415; 71045-TC; 80048-TC; 80053-TC; 80061-TC; 83735-TC; 84100-TC; 85025-TC; 85610-TC; 85730-TC; 86706; 86850-TC; 87081-TC; 87340; 90935-TC; C1750; C1757; C1769; C1894; C9803; G0378; J0360; J0690; J1644; J2405; J2765; J3010; J3490; J7030; J7040; J7060; Q9967

== ENCOUNTER 2023-01-20 10:29 | Emergency (ER) | payer MEDICAID ==
[~2023-01-20] VITALS: Ht 165.1 cm; Wt 54.0 kg
[~2023-01-20 10:29] MED LIST changes: -AMLO-213 PO; -CARV25TA2 PO; +CLON0.1T PO; -HYDR-3974 GT; +METO25TA20 PO; +NIFE-35 PO; -OMEP20CA15 PO
--- NOTE | 2023-01-20 10:29 | NUR ---
TO ER BED 12. BIBS C/O L LEG SWELLING X2 WEEKS, PT STATES HE ONLY HAS PAIN WHILE WALKING 8/10 ON PAIN SCALE. NO RESPIRATORY DISTRESS NOTED, SATTING AT 100% ON ROOM AIR. AWAITING MD GOTTI.
[2023-01-20 11:31] LABS: BASOPHILS % (AUTO) 0.4 % (0.0-2.0); EOSINOPHILS % (AUTO) 11.8 % (0.0-6.0); HEMATOCRIT 33 % (39-51); HEMOGLOBIN 10.9 g/dL (13.5-17.5); LYMPHOCYTES # (AUTO) 0.7 K/uL (0.8-4.8); LYMPHOCYTES % (AUTO) 14.8 % (20.0-44.0); MEAN CORPUSCULAR HGB CONC 33 g/dl (31.0-36.0); MEAN CORPUSCULAR VOLUME 88 fL (80-96); MONOCYTES # (AUTO) 0.4 K/uL (0.1-1.30); MONOCYTES % (AUTO) 9.7 % (2.0-12.0); NEUTROPHILS # (AUTO) 2.8 K/uL (1.8-8.9); NEUTROPHILS % (AUTO) 63.3 % (43.0-81.0); PLATELET COUNT (AUTO) 117 K/uL (150-450); RED BLOOD CELL COUNT(AUTO) 3.81 MIL/uL (4.5-6.0); WHITE BLOOD COUNT (AUTO) 4.5 K/uL (4.3-11.0)
[2023-01-20 11:34] LABS: CALCIUM, SERUM 8.7 mg/dL (8.5-10.1); POTASSIUM 5.1 mmol/L (3.5-5.1)
[2023-01-20 11:38] LABS: CREATININE 11.9 mg/dL (0.6-1.3)
[2023-01-20] MEDS ORDERED: MUPI22OI2 TP (12:07)
[2023-01-20] MEDS ORDERED: SULF1TAB48 PO (12:07)
[2023-01-20] MEDS ORDERED: CEPH750C7 PO (12:07)
[2023-01-20 12:31] VITALS: BP 163/98
== END 2023-01-20 12:32 | disposition home or self-care (01) ==
LOC: ER 10:29
DX: L03.115 Cellulitis of right lower limb (principal); I10 Essential (primary) hypertension; Z98.890 Other specified postprocedural states; Z79.899 Other long term (current) drug therapy
CPT/HCPCS: 36415; 80048-TC; 85025-TC; 93971-TC

== ENCOUNTER 2023-08-25 21:43 | Emergency (ER) | payer MEDICAID ==
[~2023-08-25] VITALS: Ht 157.5 cm; Wt 58.1 kg
[~2023-08-25 21:43] MED LIST changes: +CEPH750C7 PO; +MUPI22OI2 TP; +SULF1TAB48 PO
[2023-08-25 21:55] VITALS: BP 134/71; TEMP 98.8; O2SAT 100
== END 2023-08-25 22:25 | disposition left against medical advice (07) ==
LOC: ER 21:45
DX: R10.84 Generalized abdominal pain (principal); Z53.21 Procedure and treatment not carried out due to patient leaving prior to being seen by health care provider